=== PATIENT | male | born 1965 | race Two or more races ===

== ENCOUNTER 2019-08-19 19:50 | Inpatient (IN) | payer MEDICAID ==
[~2019-08-19] VITALS: Ht 160 cm; Wt 123.9 kg
[2019-08-19] MEDS ORDERED: SODIUM CHLORIDE 0.9% 1,000 ML IV ONE (23:00)
[2019-08-19 23:24] LABS: BASOPHILS % (AUTO) 0.2 % (0.0-2.0); EOSINOPHILS % (AUTO) 0.1 % (1.0-6.0); HEMATOCRIT 41.6 % (41-53); HEMOGLOBIN 13.2 g/dL (13.5-17.5); LYMPHOCYTES # (AUTO) 0.8 K/uL (1.0-4.8); LYMPHOCYTES % (AUTO) 8.6 % (22.0-44.0); MEAN CORPUSCULAR HEMOGLOBIN 26.5 pg (26.0-34.0); MEAN CORPUSCULAR HGB CONC 31.7 G/dL (31.0-37.0); MEAN CORPUSCULAR VOLUME 84 fL (80-100); MONOCYTES # (AUTO) 0.5 K/uL (0.1-1.0); MONOCYTES % (AUTO) 5.1 % (2.0-9.0); NEUTROPHILS # (AUTO) 7.6 K/uL (1.8-7.7); PLATELET COUNT (AUTO) 291 K/uL (150-450); RED BLOOD CELL COUNT(AUTO) 4.99 MIL/uL (4.50-5.90); RED CELL DISTRIBUTION WIDTH 16.6 % (11.5-14.5)
[2019-08-19 23:41] LABS: ANION GAP 10 mmol/L (8-16); CARBON DIOXIDE 27 mmol/L (22-29); CHLORIDE 110 mmol/L (98-107); CREATININE 0.92 mg/dL (0.60-1.30); GLOMERULAR FILTR. RATE CALC > 60 mL/min (>60); GLUCOSE,RANDOM 152 mg/dL (70-110); POTASSIUM 4.1 mmol/L (3.5-5.1); SODIUM SERUM 147 mmol/L (136-145); UREA NITROGEN, BLOOD 20 mg/dL (7-18)
[2019-08-19 23:42] LABS: PROTHROMBIN TIME 10.7 SEC (9.4-11.6)
[2019-08-19 23:47] LABS: ALANINE AMINOTRANSFERASE 26 U/L (12-78); ALBUMIN 3.6 g/dL (3.4-5.0); ALKALINE PHOSPHATASE 95 U/L (46-116); ASPARTATE AMINOTRANSFERASE 15 U/L (15-37); BILIRUBIN,TOTAL 0.2 mg/dL (0.1-1.0); TOTAL PROTEIN, SERUM 7.4 g/dL (6.4-8.2)
[2019-08-19 23:59] LABS: APPEARANCE,URINE CLEAR (CLEAR); BILIRUBIN,URINE NEGATIVE (NEGATIVE); GLUCOSE, URINE (UA) NEGATIVE (NEGATIVE); KETONES,URINE NEGATIVE (NEGATIVE); LEUKOCYTE ESTERASE ,URINE NEGATIVE (NEGATIVE); NITRATE,URINE NEGATIVE (NEGATIVE); OCCULT BLOOD,URINE TRACE (NEGATIVE); PH,URINE 5.5 (5.0-8.0); PROTEIN,URINE POS 1+ (NEGATIVE); UROBILINOGEN,URINE 0.2 mg/dL (<=1.0)
[2019-08-20] LABS: CREATINE KINASE, TOTAL ONLY 190 U/L (39-308)
[2019-08-20 00:12] LABS: AMPHET/METH SCREEN,URINE NEGATIVE (NEGATIVE); BARBITURATE SCREEN, URINE NEGATIVE (NEGATIVE); BENZODIAZEPINES SCREEN,URINE NEGATIVE (NEGATIVE); CANNABINOID SCREEN,URINE NEGATIVE (NEGATIVE); COCAINE SCREEN,URINE NEGATIVE (NEGATIVE); METHADONE SCREEN, URINE NEGATIVE (NEGATIVE); OPIATE SCREEN,URINE NEGATIVE (NEGATIVE); PHENCYCLIDINE SCREEN,URINE NEGATIVE (NEGATIVE)
[2019-08-20 00:49] LABS: BACTERIA,URINE None Seen /HPF (None Seen); RBC,URINE 0-2 /HPF (0-2); SQUAMOUS EPITHELIAL CELL,UR Rare /LPF (None Seen); WBC,URINE 0-2 /HPF (0-5)
[2019-08-20 00:50] LABS: MUCUS,URINE Few LPF (None Seen)
[2019-08-20] MEDS ORDERED: ASPIRIN 81 MG CHEWABLE TABLET PO ONE (02:30)
[2019-08-20] MEDS ORDERED: ACETAMINOPHEN 325 MG TABLET PO PRN ×2 (03:00→07:45)
[2019-08-20] MEDS ORDERED: ONDANSETRON HCL 4 MG/2 ML VIAL IVP PRN ×2 (03:00→07:45)
[2019-08-20] MEDS ORDERED: 0.9% SODIUM CHLORIDE 10 ML SYRINGE IVP PRN ×2 (03:00→07:45)
[2019-08-20 04:36] VITALS: BP 138/77
[2019-08-20] MEDS ORDERED: POTASSIUM CHLORIDE 20 MEQ ER TABLET PO PRN (07:45)
[2019-08-20] MEDS ORDERED: POTASSIUM CHL 10 MEQ/WATER 50 ML IV PRN (07:45)
[2019-08-20] MEDS ORDERED: MAGNESIUM SULFATE 4 GM/WATER 100 ML IV PRN (07:45)
[2019-08-20] MEDS ORDERED: MAGNESIUM SULFATE 2 GM/WATER 50 ML IV PRN (07:45)
[2019-08-20] MEDS ORDERED: ZOLPIDEM TARTRATE 5 MG TABLET PO PRN (07:45)
[2019-08-20] MEDS ORDERED: MAGNESIUM OXIDE 400 MG TABLET PO PRN (07:45)
[2019-08-20] MEDS: DOCUSATE SODIUM 100 MG CAPSULE PO SCH ×2 (08:42→20:31)
[2019-08-20] MEDS: PANTOPRAZOLE SODIUM 40 MG DR TABLET PO SCH (08:42)
[2019-08-20] MEDS: METOPROLOL TARTRATE 25 MG TABLET PO SCH ×2 (08:42→20:31)
[2019-08-20] MEDS: ASPIRIN 81 MG EC TABLET PO SCH (08:44)
[2019-08-20] MEDS: SODIUM CHLORIDE 0.9% 1,000 ML IV SCH ×2 (08:53→23:27)
[2019-08-20] MEDS: ENOXAPARIN SODIUM 40 MG/0.4 ML PF SYRINGE SQ SCH (09:52)
[2019-08-20 11:57] VITALS: BP 116/73
[2019-08-20 16:06] VITALS: BP 120/75
[2019-08-20 20:48] VITALS: BP 122/80
[2019-08-21 04:54] VITALS: BP 125/92
[2019-08-21 07:20] VITALS: BP 119/74
[2019-08-21] MEDS: ENOXAPARIN SODIUM 40 MG/0.4 ML PF SYRINGE SQ SCH (10:29)
[2019-08-21] MEDS: ASPIRIN 81 MG EC TABLET PO SCH (10:29)
[2019-08-21] MEDS: METOPROLOL TARTRATE 25 MG TABLET PO SCH (10:29)
[2019-08-21] MEDS: DOCUSATE SODIUM 100 MG CAPSULE PO SCH (10:29)
[2019-08-21] MEDS: PANTOPRAZOLE SODIUM 40 MG DR TABLET PO SCH (10:29)
[2019-08-21 11:50] LABS: BASOPHILS % (AUTO) 0.6 % (0.0-2.0); HEMATOCRIT 35.9 % (41-53); HEMOGLOBIN 11.3 g/dL (13.5-17.5); LYMPHOCYTES # (AUTO) 1.9 K/uL (1.0-4.8); LYMPHOCYTES % (AUTO) 38.9 % (22.0-44.0); MEAN CORPUSCULAR HEMOGLOBIN 26.4 pg (26.0-34.0); MEAN CORPUSCULAR HGB CONC 31.5 G/dL (31.0-37.0); MEAN CORPUSCULAR VOLUME 84 fL (80-100); MONOCYTES # (AUTO) 0.3 K/uL (0.1-1.0); MONOCYTES % (AUTO) 7.2 % (2.0-9.0); NEUTROPHILS # (AUTO) 2.4 K/uL (1.8-7.7); NEUTROPHILS % (AUTO) 50.3 % (40.0-70.0); PLATELET COUNT (AUTO) 250 K/uL (150-450); RED BLOOD CELL COUNT(AUTO) 4.27 MIL/uL (4.50-5.90)
[2019-08-21 11:56] VITALS: BP 122/82
[2019-08-21] MEDS: SODIUM CHLORIDE 0.9% 1,000 ML IV SCH (12:06)
[2019-08-21 12:43] LABS: ALANINE AMINOTRANSFERASE 23 U/L (12-78); ALBUMIN 3.4 g/dL (3.4-5.0); ALKALINE PHOSPHATASE 69 U/L (46-116); ANION GAP 8 mmol/L (8-16); ASPARTATE AMINOTRANSFERASE 15 U/L (15-37); BILIRUBIN,TOTAL 0.3 mg/dL (0.1-1.0); CALCIUM, TOTAL 8.2 mg/dL (8.8-10.5); CARBON DIOXIDE 27 mmol/L (22-29); CHLORIDE 105 mmol/L (98-107); CREATININE 0.77 mg/dL (0.60-1.30); GLOMERULAR FILTR. RATE CALC > 60 mL/min (>60); GLUCOSE,RANDOM 119 mg/dL (70-110); SODIUM SERUM 140 mmol/L (136-145); UREA NITROGEN, BLOOD 10 mg/dL (7-18)
[2019-08-21 16:32] VITALS: BP 130/70
[2019-08-21] MEDS ORDERED: ASPI-728 PO (18:48)
[2019-08-21] MEDS ORDERED: ATOR20TA86 PO (18:48)
== END 2019-08-21 19:15 | disposition home or self-care (01) | DRG 204 ==
LOC: EMS 19:55 → 5S 08-20 03:58
PROVIDERS: ADMIT Internal Medicine; ATTEND Internal Medicine
DX: R55 Syncope and collapse (principal); E87.0 Hyperosmolality and hypernatremia; E86.0 Dehydration; E86.9 Volume depletion, unspecified; R20.0 Anesthesia of skin; R14.0 Abdominal distension (gaseous); H53.8 Other visual disturbances; Z72.89 Other problems related to lifestyle
CPT/HCPCS: 70450; 83735; 93005; 93306; 93880; G0378; J1650; J7030